=== PATIENT | male | born 1985 | race Caucasian/White ===

== ENCOUNTER 2020-01-06 23:43 | Observation (INO) | payer SELFPAY ==
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
[2020-01-07] MEDS ORDERED: Vancomycin(*) 1,000 MG in NS 0.9% 250 ML* 250 ML IVPB ONE ×2 (00:58→02:58)
[2020-01-07 01:19] LABS: ABS Basophils 0.1 10^3/ul (0-0.2); ABS Eosinophils 0.2 10^3/ul (0-0.6); ABS Lymphocytes 1.8 10^3/ul (1.0-4.8); ABS Monocytes 1.2 10^3/ul (0-0.8); ABS Neutrophils 6.3 10^3/ul (1.5-7.7); Eosinophil % 1.7 %; Hematocrit 46 % (42-52); Lymphocyte % 18.6 %; Mean Corpuscular HGB Conc 34 g/dL (31-36); Mean Corpuscular Hemoglobin 30 pg (27-31); Mean Corpuscular Volume 89 fL (80-94); Nucleated Red Blood Cells % 0.1; Platelet Count 373 10^3/uL (150-450); Red Blood Count 5.24 10^6 /uL (4.18-5.48); Red Cell Distribution Width 14 % (10-15); White Blood Count 9.6 10^3/uL (3.5-10.8)
[2020-01-07 01:36] LABS: Albumin 4.2 g/dL (3.2-5.2); Albumin/Globulin Ratio 1.2 (1-3); BUN/Creatinine Ratio 21.7 (8-20); C Reactive Protein 20.42 mg/L (<8.01); Calcium 9.1 mg/dL (8.6-10.3); EGFR African American 112.6 (>60); EGFR Non-African American 93.1 (>60); Globulin 3.5 g/dL (2-4); Potassium 3.8 mmol/L (3.5-5.0); Total Bilirubin 0.6 mg/dL (0.2-1.0); Total Protein 7.7 g/dL (6.4-8.9)
[2020-01-07] MEDS ORDERED: Docusate CAP* 100 MG PO PRN (02:49)
[2020-01-07] MEDS ORDERED: Acetaminophen TAB* 325 MG PO PRN (02:49)
[2020-01-07] MEDS ORDERED: Ondansetron INJ* 2 MG/ML VIAL IV PRN (02:49)
[2020-01-07] MEDS ORDERED: Vancomycin per Pharmacy* NOTE FOLLOW UP SCH (03:00)
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
[2020-01-07] MEDS ORDERED: Vancomycin(*) 1,000 MG in NS 0.9% 250 ML* 250 ML IV SCH (10:00)
[2020-01-07 11:31] VITALS: BP 117/60
--- NOTE | 2020-01-07 19:57 | DS ---
DISCHARGE SUMMARY: DATE OF ADMISSION: 01/07/20 DATE OF DISCHARGE: 01/07/20 ATTENDING PHYSICIAN: Dr. Whitney* (dictated by Mirta Padilla NP). PRIMARY CARE PHYSICIAN: The patient is being set up through [facility]. PRIMARY DIAGNOSIS: Cellulitis, right lower extremity. SECONDARY DIAGNOSIS: Prediabetes. HISTORY OF PRESENT ILLNESS AND HOSPITAL COURSE: Mr. Vance is a 34-year-old man with past medical history significant for ORIF of the distal radius, status post fracture. He presented to the emergency department with complaints of a nonhealing ulcer to his right woodard x2-1/2 months and states that he had been weak for the last 7 days or so. The patient had failed outpatient antibiotic therapy at urgent care x2. He started Bactrim on 10/27/19. The patient states that he believes that his wound had pretty much all healed after taking the Bactrim; it had scabbed over and then the scab fell off. He had a small open area about a week or so ago, which got reinfected. After this got reinfected, he states that his dog rubbed up against his leg. He is thinking may be that precipitated the second infection. He went to Urgent Care again, got doxycycline and did not have much improvement with doxycycline. The patient was complaining of pain so that he was unable to stand on it while he was in the emergency department. I thought that he had gotten a little bit of improvement while there and that it was a little less red. Denied any signs or symptoms of systemic illness other than weakness. No fever, chills, nausea, lightheadedness. The patient was started on vancomycin IV. CT scan did not indicate any underlying abscess or foreign body. Did not show any irregularity of the underlying muscle or bone tissue. Hemoglobin A1c was obtained given that he has had recurrent infections in this area. When I saw the patient today , the redness had receded a fair amount below the marking, which was done prior in the emergency department. The patient denied any pain. Denied any numbness or tingling to the area or below the area. Denied chest pain, shortness of breath, abdominal discomfort. Given that the patient had improvement with some doses of vancomycin IV and that he does not have any infection below the superficial fascia, he was acceptable for discharge today. Plan is to leave on clindamycin p.o. He is being set up with [facility] for proper outpatient followup. He has also been given a referral to [facility]. DIAGNOSTIC STUDIES: CT right lower extremity without contrast, impression states right lower extremity cellulitis with no abscess or foreign bodies. Infrapatellar bursitis. Mild tricompartmental right knee primary osteoarthritis. It is noted above that there is a small cutaneous defect, mid woodard anteriorly in the midline. Stranding does not extend below the superficial fascia. Visualized muscles are normal in attenuation and girth. Right lower extremity x-ray, impression states no fracture or radiopaque foreign body. Also mentions that the bone mineralization is within normal limits. Calcaneal enthesophytes are present. PERTINENT LAB DATA: CBC all within normal limits except absolute monocytes 1.2. CMP all within normal limits except BUN, creatinine ratio 21.7. CRP 20.42. Hemoglobin A1c 5.8. REVIEW OF SYSTEMS: A 10-point review of systems was completed with this patient. Please see HPI for all pertinent positives and negatives. PHYSICAL EXAM: Constitutional: The patient is sitting up in bed, in no acute distress. Last vital signs, temp 97.9, heart rate 84, respiratory rate 18, O2 sat 96% on room air, blood pressure 117/60. HEENT: Mucous membranes moist. No scleral icterus noted. Cardiovascular: Heart rate regular. S1, S2 present. No murmurs, rubs, or gallops noted. Respiratory: Very slight expiratory wheeze to left upper and left lower lobes. Clear inspiratory sounds. Right lung clear throughout. GI: Normoactive bowel sounds throughout. Abdomen is large, soft, nontender. Musculoskeletal: Strength and range of motion seemed to be within normal limits in all extremities. Skin: Small open area to right anterior woodard, midline with surrounding erythema. No active drainage. No excessive warmth. No edema. Erythema receded significantly below prior demarcation with marking pen. No erythema to the right foot. Neuro: Alert and oriented x3. DISCHARGE PLAN: 1. The patient should continue with healthy diet, low in unhealthy fats and sugars. 2. No equipment necessary for discharge. 3. The patient should return to the emergency department if he experiences sharp increase in pain to the right leg or foot, increase in swelling, redness, numbness, tingling, pale in color or significant change in color, if the leg feels really cold or if he develops fevers, persistent nausea or vomiting, chest pain, or unusual shortness of breath. 4. Cellulitis, right lower extremity. Considering the improvement on vancomycin IV and that there is only superficial infection, it is reasonable to send the patient home today on clindamycin p.o. The patient not exhibiting any signs or symptoms at this time of systemic infection either. He is being set up with [facility], so he can have proper followup for this condition. I did speak to him in length about when he should return to the emergency department or call his PCP once he gets set up with one. He should follow up with his PCP in 1 to 2 weeks. 5. Prediabetes. The patient had hemoglobin A1c of 5.8. I spoke with him at length about lifestyle modification. The patient seems very receptive to this idea. The patient seemed as if he was mildly disturbed that he had hemoglobin A1c that qualified him as prediabetic. He was happy to receive a referral to [facility]. He should follow up with [facility] within the next month or so. I also spoke to the patient about potential harms of vaping as he states he quit smoking cigarettes and now he vapes sometimes, and gave information packet on vaping. MEDICATIONS AT DISCHARGE: The patient can continue to take: 1. Ibuprofen p.r.n. as needed. 2. Clindamycin 300 mg p.o. q.i.d. for 10 days. STATUS: Stable. DISPOSITION: Home. TIME SPENT: Approximately 40 minutes were spent on this discharge in interviewing, counseling, and examining the patient. I did speak to Dr. Lim about the antibiotic selection. I also did speak to Dr. Whitney about this case and plan and she agrees with this plan. MIRTA PADILLA, SHIRLEY [id number]/[facility] #: [id number] MARILYNN
[2020-01-08] MEDS ORDERED: Vancomycin Trough Check NOTE FOLLOW UP ONE (09:30)
== END 2020-01-07 14:30 | disposition home or self-care (01) ==
LOC: ED 23:43 → SSU 01-07 02:49
PROVIDERS: ADMIT Internal Medicine; ATTEND Hospitalist
DX: L03.115 Cellulitis of right lower limb (principal); R73.03 Prediabetes; Z88.0 Allergy status to penicillin; Z87.891 Personal history of nicotine dependence; Z96.698 Presence of other orthopedic joint implants; I10 Essential (primary) hypertension
CPT/HCPCS: 36415; 80053; 83036; 83605; 85025; 86140; 87040; 96365; 96366; 99284; G0378; J3370

== ENCOUNTER 2020-04-25 04:14 | Observation (INO) ==
[2020-04-25] MEDS ORDERED: Famotidine IV 10 MG/ML 2 ml VIAL (20 mg) IV SLOW PU ONE (04:25)
[2020-04-25] MEDS ORDERED: Ondansetron 4 mg VIAL 2 MG/ML 2 ml VIAL IV ONE (04:25)
[2020-04-25] MEDS ORDERED: Lactated Ringers 1000 ml BAG 1,000 ML IV ONE (04:25)
[2020-04-25] MEDS ORDERED: fentaNYL 100 mcg/2 ml 50 MCG/ML VIAL IV SLOW PU ONE (05:13)
[2020-04-25 06:00] LABS: ABS Eosinophils 0.1 10^3/ul (0-0.6); ABS Lymphocytes 1.2 10^3/ul (1.0-4.8); ABS Monocytes 1.2 10^3/ul (0-0.8); ABS Neutrophils 11.8 10^3/ul (1.5-7.7); Eosinophil % 0.5 %; Hematocrit 49 % (42-52); Lymphocyte % 8.5 %; Mean Corpuscular HGB Conc 35 g/dL (31-36); Mean Corpuscular Hemoglobin 30 pg (27-31); Mean Corpuscular Volume 88 fL (80-94); Mean Platelet Volume 8.5 fL (7.4-10.4); Nucleated Red Blood Cells % 0.1; Platelet Count 308 10^3/uL (150-450); Red Blood Count 5.63 10^6 /uL (4.18-5.48); Red Cell Distribution Width 14 % (10-15); White Blood Count 14.3 10^3/uL (3.5-10.8)
[2020-04-25 06:14] LABS: Albumin 4.3 g/dL (3.2-5.2); Calcium 9.1 mg/dL (8.6-10.3); Indirect Bilirubin 0.4 mg/dL (0.3-1.0); Total Bilirubin 0.5 mg/dL (0.2-1.0)
[2020-04-25 06:20] LABS: Albumin/Globulin Ratio 1.5 (1-3); BUN/Creatinine Ratio 21.5 (8-20); EGFR African American 110.6 (>60); EGFR Non-African American 91.4 (>60); Globulin 2.9 g/dL (2-4); Total Protein 7.2 g/dL (6.4-8.9)
[2020-04-25] MEDS ORDERED: Iohexol 300 (CONTRAST) 10 ML SDV IV ONE (06:29)
[2020-04-25] MEDS ORDERED: Morphine 4 MG/ML VIAL (1 ml) IV ONE (09:04)
[2020-04-25] MEDS ORDERED: Lactated Ringers 1000 ml BAG 1,000 ML IV SCH (10:00)
[2020-04-25] MEDS: Morphine 2 MG/ML SYRINGE IV PRN ×4 (12:36→21:49)
[2020-04-25] MEDS: Lactated Ringers 1000 ml BAG 1,000 ML IV SCH ×2 (13:06→18:50)
[2020-04-26] MEDS: Lactated Ringers 1000 ml BAG 1,000 ML IV SCH ×2 (02:22→08:30)
[2020-04-26 05:04] LABS: ABS Eosinophils 0.2 10^3/ul (0-0.6); ABS Lymphocytes 1.5 10^3/ul (1.0-4.8); ABS Monocytes 1.3 10^3/ul (0-0.8); ABS Neutrophils 7.6 10^3/ul (1.5-7.7); Hematocrit 48 % (42-52); Hemoglobin 16.7 g/dL (14.0-18.0); Lymphocyte % 14.3 %; Mean Corpuscular HGB Conc 35 g/dL (31-36); Mean Corpuscular Hemoglobin 30 pg (27-31); Mean Corpuscular Volume 87 fL (80-94); Mean Platelet Volume 7.9 fL (7.4-10.4); Platelet Count 292 10^3/uL (150-450); Red Blood Count 5.55 10^6 /uL (4.18-5.48); Red Cell Distribution Width 14 % (10-15); White Blood Count 10.7 10^3/uL (3.5-10.8)
[2020-04-26 05:23] LABS: BUN/Creatinine Ratio 14.9 (8-20); C Reactive Protein 16.93 mg/L (<8.01); Calcium 8.7 mg/dL (8.6-10.3)
[2020-04-26 11:10] VITALS: BP 127/61
== END 2020-04-26 14:45 | disposition home or self-care (01) ==
LOC: ED 04:14 → SSU 04:14
PROVIDERS: ADMIT Surgery; ATTEND Surgery